=== PATIENT | male | born 1975 | race Caucasian/White ===

== ENCOUNTER 2018-02-05 06:48 | Day surgery (SDC) | payer OTHER, SELFPAY ==
[2018-01-27 10:08] VITALS: BMI 32.3
[2018-02-05] VITALS (15 sets, daily range): BP systolic 117–142; BP diastolic 64–95; PULSE 56–90; RESP 10–20; TEMP 36.1–36.3; O2SAT 12–100; BMI 33.0
[2018-02-05] MEDS: LACTATED RINGERS 1,000 ML 42 ML IV ×2 (07:38→11:33)
[2018-02-05] MEDS: fentaNYL 100 MCG/2 ML INJ 50 MCG IV (07:47)
[2018-02-05] MEDS: MIDAZOLAM 2 MG/2 ML VIAL IV (07:55)
--- NOTE | 2018-02-05 07:57 | PM.PREOP ---
Pre-operative Note Interval Note Pre-op Check: Yes History & Physical Reviewed by Physician and Yes Exam Performed Changes: No
[2018-02-05] MEDS: CEFAZOLIN 2 GM/100 ML FROZ.PIGGY IV (08:55)
--- NOTE | 2018-02-05 09:48 | SUR.OPER ---
Lateral on padded OR bed with dowd bag positioner, head on pillow, gel axillary roll in place, bottom leg bent with gel pad under knee to foot, upper leg straight and supported with pillows. Operative arm secured in shoulder positioning suspension device. non-operative arm secured on padded arm board. Safety belt at hip, tape over blanket securing lower legs.
[2018-02-05] MEDS: BUPIVACAINE 0.25% (PF) VIAL 30 ML INJ (09:58)
[2018-02-05] MEDS: SODIUM CHLORIDE IRRIG SOLUTION 3,000 ML, EPINEPHrine 1 MG IRR (09:58)
[2018-02-05] MEDS: CEFAZOLIN 1 GM VIAL IV (13:45)
[2018-02-05 15:52] LABS: Alanine Aminotransferase 39 IU/L (21-72)
--- NOTE | 2018-02-05 16:03 | P.OP_ITS ---
Operative Date/Time/Diagnoses Date of procedure: 02/05/18 Time of procedure: 09:00 Pre-op diagnosis: Left shoulder labral tear, left shoulder rotator cuff tendinopathy, left shoulder long head biceps tendinopathy in the setting of superior labrum tear, left shoulder acromioclavicular osteoarthritis, and left carpal tunnel syndrome. Post-op diagnosis: same Procedure & Clinicians Procedure: 1. Left shoulder arthroscopy with subscapularis rotator cuff repair. 2. Left shoulder arthroscopy with anterior labral repair (capsulorrhaphy). 3. Left shoulder arthroscopy with superior labrum anterior to posterior (SLAP) debridement. 4. Left shoulder open subpectoral biceps tenodesis. 5. Left shoulder open distal clavicle excision. 6. Left open carpal tunnel release. Same procedure as scheduled: Yes Indications: This is a 42-year-old [id number] male whose had left shoulder pain for greater than 5 years as well as left hand numbness and tingling in the thumb and index finger. A preoperative EMG/nerve conduction study test showed slowing of the median nerve conduction across the carpal tunnel consistent with carpal tunnel syndrome. A MRI of his left shoulder was obtained that showed a anterior labral tear that extended inferiorly with an underlying large cyst in the glenoid, cartilage loss on the glenoid as well as the humeral head, superior labrum anterior to posterior tear with tendinopathy of the long head biceps tendon in the groove, rotator cuff tendinopathy, and acromioclavicular osteoarthritis. The patient continued to have left shoulder pain despite activity modification, physical therapy, corticosteroid injections , nonsteroidal anti-inflammatories. The risks, benefits, indications, and expectations of treatment options were discussed with the patient. The risks of surgery to include but not limited to infection, bleeding, damage to neurovascular structures, need for additional surgery, persistent or worsening pain, recurrent labral tears, failure of biceps tenodesis, recurrent rotator cuff tears, iatrogenic chondromalacia, iatrogenic fracture, deep vein thrombosis , pulmonary embolism, loss of limb and loss of life were discussed with the patient. All questions were answered, the patient elected to proceed with surgery and informed consent was obtained. Surgeon: Tayler Levy Yes if Unassisted: Yes Anesthesia Type: General (Endotracheal tube), Peripheral nerve block (Left interscalene nerve block) and Local (15 mL of 0.25 upivacaine without epinephrine) Operative Notes Findings: 1. Anterior edge of subscapularis tear without significant retraction of the tendon. 2. Superior labrum anterior posterior tear. 3. Anterior labral tear from the superior labrum to the 7:00 position. 4. 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 5. Grade 3 chondromalacia of the humeral head. 6. Osteoarthritis of the acromioclavicular joint. 7. Tenosynovitis of the long head of the biceps. 8. Thickening of the transverse carpal ligament. Closure Type: primary Implants & Drains: 1. Arthrex SutureTak x1. 2. Arthrex PushLock x2. 3. Arthrex bio tenodesis screw 6.25 mm. Estimated Blood Loss (mL): 50 Blood products transfused: none Tourniquet time (min): 17 Procedure in detail: The patient was met in the preoperative hold area on the morning of surgery were reconfirmed that we had the correct patient, were planned due the correct procedure and had the correct extremity which was the left upper extremity identified. Prior to the patient receiving any medications the operative extremity was initialed by the surgeon. The patient then underwent sedation had a left interscalene nerve block performed by anesthesia. The patient was then brought back to the operating room in stable condition and placed supine on the operating room table. All bony prominences well padded and sequential compression devices were placed on the bilateral lower extremities. General anesthesia was induced without complication and endotracheal tube was placed. The patient was then positioned into a lateral decubitus position utilizing a beanbag. We again ensured that all bony prominences well padded. The left upper extremity was then prepped and draped in the usual sterile fashion. After final draping an additional ChloraPrep was utilized. 3 min were allowed to lapse to enable ChloraPrep to dry. We have surgical time-out we confirmed that we had the correct patient, we will plan to do the correct procedure and had the correct extremity which was the left upper extremity identified. We also confirmed the patient received preoperative antibiotics, that all necessary gear was then removed from sterile, the necessary implants were present and that no members of the operative team had any concerns. We then utilizing the Arthrex sleeve in [place] placed the left upper extremity in the traction. I then began by making a standard posterior portal by 1st incising the skin with a#11 blade and then inserting the trocar with the blunt introducer into the shoulder. Initially this was into the subacromial space which showed only minimal bursitis. I then repositioned the trocar into the glenohumeral joint and continued my examination. Immediately on entering a superior labrum anterior to posterior tear was visualized. Additionally grade 3 chondromalacia of the humeral head and grade 4 chondromalacia of the glenoid in the anterior aspect was appreciated. I then established a anterior portal in the rotator interval by 1st localizing with an 18 gauge needle then incising the skin with a#11 blade and then placing a switching stick through the incision into the shoulder joint. I then dilated over this and placed a 5.5 mm cannula. I then introduced my probe and continued my examination. Probing of the superior labrum anterior to posterior region again proved that this was torn. Additionally the anterior labrum was torn down to approximately the 7 o' clock position. The remainder of the labrum was intact. There is significant chondromalacia of the glenoid in the anterior inferior aspect which was full- thickness as well as grade 2 and 3 chondromalacia on the more posterior inferior aspect, which was debrided of any loose flaps utilizing the sucker shaver. The supraspinatus was intact and there was some induration of the infraspinatus however it was intact. I then inserted a biter and detached the long head of the biceps at the anchor. I then inserted a sucker shaver and debrided the anterior labrum, the biceps stump and the biceps sling. I then evaluated the subscapularis which was notable for tearing of the anterior edge and some mild laxity in the tension of the tendon. Therefore decision was made to do a repair of the anterior edge of the subscapularis tendon. I debrided any unhealthy appearing tissue. I then created a appropriate place on the humeral head for reattachment by utilizing the bur mode on the sucker shaver to get bleeding bone. I then established a 2nd anterior portal after localizing with an 18 gauge needle that was more inferior and medial to the initial 1 to give the appropriate angle for placing the anchor into the humeral head. After establishing the portal with a switching stick and then dilated over this and placed a cannula. I then loaded suture tape on a scorpion and a horizontal mattress suture in the subscapularis. I then loaded the suture tape on to a PushLock anchor. I then used the punch to create a hole in the appropriate place in the humeral head where I had debrided down to bleeding bone. I then appropriately tensioned the suture tape and placed the PushLock into the pre punched hole. I then cut the suture tape with no tails. I then probed this repaired confirm that the subscapularis was appropriately taut now. I then turned my attention to the anterior labral tear. It should be noted that underneath this tear was a large cyst in the glenoid. I withdrew the 2nd anterior portal that had placed and made a 3rd anterior portal that was just inferior to the 1st 1 and placed a cannula into this portal. I elevated the labrum utilizing an elevator and then prepared the bone utilizing a pineapple rasp as well as the sucker shaver in bur mode. Because of the large cyst I placed my initial anchor in the inferior aspect and further inferior with shallow angle to enable capturing good bone. This 1st anchor was a preloaded SutureTak. I then attempted to utilize a suture Lasso to pass 1 of the sutures through the labrum, however was unable because of the angle with the humeral head to get a good bite of the labrum therefore decision was made to load the suture into a scorpion and passed the suture through the labrum utilizing this. The suture was successfully passed through however on withdrawing the scorpion from the joint the suture became frayed and was not usable. Therefore this anchor was not usable in the suture was cut flush. I then attempted to place a 2nd anchor just superior to this at a sharper angle, however after drilling the anterior aspect of the cyst gave way and this was not usable drill hole therefore was debrided. Because of the cyst and then made the determination to place the anchor further onto the glenoid face and a shallower angle. This anchor utilized a PushLock, which was loaded with FiberWire after the FiberWire was passed through the labrum utilizing the scorpion. After appropriately tensioning the labrum the PushLock was placed down into the predrilled hole. Labrum was brought appropriately up over the on to the edge of the glenoid and was appropriately taut. I then placed a 2nd PushLock more superior to the 1st after passing FiberWire through the labrum utilizing the suture Lasso. I then probed the labral repair, which was appropriately brought to the anterior edge and a little onto the surface of the glenoid given the chondromalacia. I then withdrew all arthroscopic equipment from the glenohumeral joint. At this time the shoulder had significant swelling from the arthroscopic fluid and given that the subacromial space and 1st evaluation did not have significant bursitis decision was made not to do a arthroscopic subacromial decompression. I then turned my attention to the open subpectoral biceps tenodesis. Made an incision in line with the arm approximately 1 cm above the inferior border of the pack and extending 2 cm inferior to this. Sharply incising the skin I utilized electrocautery to dissect through the subcuticular layer and maintain hemostasis. I then identified the fascia overlying the muscle and utilized Metzenbaum scissors to incise this. I then bluntly dissected into the bicipital groove where I localized the long-head biceps tendon in the groove. I withdrew this from the wound. The tendon was notable for significant tenosynovitis. I debrided the tenosynovitis and then marked 2 cm proximal to the muscular tendinous junction. I then utilized a 2. Fiber loop suture to whipstitch from the musculotendinous junction to the marked. I then truncated the remainder of the tendon. I then measured the tendon to be just under 6 mm in diameter. Therefore decision was made to drill a 6 mm drill, tapped with a 6.25 mm tap and placed a 6.25 mm tenodesis screw. I then localized the appropriate spot in the groove just under the inferior margin of the pectoralis to place the biceps tenodesis screw and placed a guide pin. I then attempted to drill over this guide pin however realized was directed too far lateral and was on the lateral cortex therefore repositioned the guide pin and then again drilled unit cortically with a 6 mm drill. I then tapped the drill hole with a 6.25 mm tap. I then loaded 1 strand of the FiberWire from the whipstitch through a 6.25 mm bio tenodesis screw and placed a screw flush to the end of the tendon. I then placed the tendon in the screw into the pre drilled hole. I then tugged on the 2 ends of the suture to confirm that the screw was appropriately seated. I then tied the 2 ends of the FiberWire over the tenodesis screw. Then thoroughly irrigated the wound. I then turned my attention to the open distal clavicle excision. Major saber incision over the acromioclavicular joint. After sharply incising the skin I utilized electrocautery to dissect through the subcuticular layer. I then identified the fascia overlying the clavicle and incised this in line with the clavicle. I then elevated the fascia from the clavicle anteriorly and posteriorly. I then placed Neri retractors anteriorly and posteriorly around the acromioclavicular joint. I removed the intra-articular disc from the acromioclavicular joint utilizing a rongeur. I then measured 1 cm proximal to the end of the clavicle and marked this. I then utilized a sagittal saw to remove the distal cm of the clavicle. I then utilized a rasp to smooth the edges of the clavicle. I inserted my finger and confirmed that there were no sharp edges that there had been adequate resection. I then thoroughly irrigated the wound. I then turned my attention to closing all the shoulder incisions. The fascia from the distal clavicle excision was closed utilizing 0 Vicryl in figure-of- eight fashion. The subcuticular layer of each of the incisions was closed utilizing 2-0 Vicryl in a buried interrupted fashion. I then closed the skin of the distal clavicle excision and the biceps tenodesis incision utilizing 3 -0 Monocryl in a buried running fashion. I then closed each of the portal incisions skin utilizing 3-0 Monocryl in buried fashion. I then injected 10 mL of 0.25% bupivacaine without epinephrine about the biceps tenodesis incision. I then placed Mastisol and Steri-Strips across each of the incisions. Incisions were then dressed with sterile Xeroform, plain gauze and ABD. Medipore tape was then placed over this. We then repositioned the patient supine on an operating room table ensuring that all bony prominences were again well padded. The left upper extremity from the elbow down was then re-prepped and draped. After final draping an additional ChloraPrep was utilized. 3 min were allowed to lapse to enable ChloraPrep to dry. I then exsanguinated the left upper extremity and inflated a forearm tourniquet to 200 mm Hg. I then made a incision on the volar aspect of the wrist over the carpal tunnel. After sharply incising the skin I utilized bipolar cautery to dissect through the subcuticular layer. I then sharply incised palmar fascia in line with my incision utilizing a new knife blade. I then identified the transverse carpal ligament and made a small kyle in this with the knife blade. I then inserted a [place] through this neck such that it was protecting the median nerve and incised sharply down onto the [place] to transect the remainder of the transverse carpal ligament within the wound. I then inserted a tenotomies all utilizing the [place] to again keep the median nerve safe and released the transverse carpal ligament as far proximal as could be visualized. I then inserted a [place] both proximally and distally and confirmed that the entire transverse ligament had been transected in that there was ample room within the carpal tunnel. I then thoroughly irrigated the wound. The skin was closed utilizing 4-0 nylon in a horizontal mattress fashion. Wound was then dressed with sterile Xeroform, plain gauze and Smita. The tourniquet was deflated after 17 min. A Vishal bandage was then placed over this. All sponge counts and needle counts were correct at the conclusion of the case. The patient was woken from general anesthesia without complication and taken to the PACU in stable condition. Complications: none Condition: stable Disposition: PACU Plan for aftercare: The patient will be discharged home same day of surgery. May remove his dressings in 5 days and shower at that time and let his wounds get wet but no soaking his wounds for 4 weeks. 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 I will see the patient back for wound check in 10-14 days at which time we will initiate physical therapy for the anterior labral and subscapularis repair protocols.
[2018-02-05] MEDS: OXYCODONE IR 5 MG TABLET PO ×2 (16:22→16:53)
[2018-02-05] MEDS: METOCLOPRAMIDE 10 MG/2 ML INJ IV (16:28)
--- NOTE | 2018-02-05 16:40 | SUR.PHASEII ---
Prolonged stay in [facility] due to length of surgery and some ongoing nausea. Did receive Reglan in [facility].
[2018-02-05] MEDS: ONDANSETRON 4 MG/2 ML INJ IV (16:45)
[2018-02-05 19:40] LABS: Hepatitis B Surface Antigen NEGATIVE s/c (NEGATIVE)
[2018-02-05 19:55] LABS: HIV 1 and 2 Antibody NEGATIVE (NEGATIVE); Hep C Virus Ab w/Reflex Quant NEGATIVE s/c (NEGATIVE)
[2018-02-07 15:37] LABS: Hepatitis B Surf Ab Qualitativ Nonreactive (Nonreactive)
== END 2018-02-05 16:58 | disposition home or self-care (01) ==
PROVIDERS: PCP Family Medicine; Visit Provider Orthopaedic Surgery
PROC: (CPT 29805; principal; 2018-02-05 07:45)
PROC: (CPT 64721; 2018-02-05 07:45)
PROC: (CPT 23120; 2018-02-05 07:45)
DX: S43.492A Other sprain of left shoulder joint, initial encounter (principal); M75.22 Bicipital tendinitis, left shoulder; M19.012 Primary osteoarthritis, left shoulder; G56.02 Carpal tunnel syndrome, left upper limb; M94.212 Chondromalacia, left shoulder
CPT/HCPCS: 23430; 29806; 29827; 23120; 64721; 64415; 64450; J0171; J0330; J0690; J1100; J2250; J2405; J2704; J2765; J3010

== ENCOUNTER → 2018-04-29 08:56 | Outpatient (CLI) | payer OTHER, SELFPAY ==
--- NOTE | 2018-04-29 | DI.MRI.S_ITS ---
PROCEDURE: MR LUMBAR SPINE WO CON INDICATIONS: LOW BACK PAIN. 43-year-old male with worsening low back pain and radiculopathy. TECHNIQUE: Noncontrast sagittal T1 spin echo and T2 fast echo, sagittal STIR, axial T1 and T2 fast spin echo through the lumbar spine. In cases with scoliosis, additional coronal T2 fast spin echo may be performed. COMPARISON: None. FINDINGS: Image quality: Excellent. Alignment and Curvature: There is normal bony alignment. Bone Marrow: Marrow is of normal overall signal. No acute vertebral body compression fractures. Spinal Cord: Conus medullaris terminates at the L1 level. Visualized cord demonstrates normal signal and size. Paraspinous Soft Tissues: No paravertebral masses. T12-L1: Normal appearance. L1-L2: Normal appearance. L2-L3: Normal appearance. L3-L4: Mild loss of disc height is seen. Loss of disc signal is seen. Mild generalized disc bulge is seen. No significant neural foraminal or central canal narrowing are seen. L4-L5: The disc height and disk signal are well-preserved. Mild generalized disc bulge is seen. Mild to moderate facet hypertrophy is seen. There is mild to moderate bilateral neural foraminal narrowing seen, left worse than right. No significant central canal narrowing is seen. L5-S1: Normal appearance. IMPRESSION: Mild to moderate neural foraminal narrowing seen at the L4-L5 level. There is mild loss of disc height at L3-L4. Dictated by: Harinder Guy M.D. on 04/29/2018 at 12:05 Approved by: Harinder Guy M.D. on 04/29/2018 at 12:07
== END ==
PROVIDERS: PCP Family Medicine; Visit Provider Family Medicine
DX: M54.5 Low back pain (principal); M48.061 Spinal stenosis, lumbar region without neurogenic claudication
CPT/HCPCS: 72148

== ENCOUNTER → 2019-03-24 11:19 | Outpatient (CLI) | payer OTHER, SELFPAY ==
--- NOTE | 2019-03-24 | DI.MRI.S_ITS ---
PROCEDURE: MR LUMBAR SPINE WO CON INDICATIONS: Spondylosis without myelopathy or radiculopathy TECHNIQUE: Noncontrast sagittal T1 spin echo and T2 fast echo, sagittal STIR, axial T1 and T2 fast spin echo through the lumbar spine. In cases with scoliosis, additional coronal T2 fast spin echo may be performed. COMPARISON: [facility], MR, MR LUMBAR SPINE WO CON, 04/29/2018, 9:57. FINDINGS: Image quality: Excellent. Alignment and Curvature: There is normal bony alignment. Bone Marrow: Marrow is of normal overall signal. Scattered foci are seen, which are hyperintense on T1-weighted and T2-weighted imaging, which are most consistent with benign vertebral body hemangiomas. No acute vertebral body compression fractures. Spinal Cord: Conus medullaris terminates at the L1 level. Visualized cord demonstrates normal signal and size. Paraspinous Soft Tissues: No paravertebral masses. L1-L2: Normal appearance. L2-L3: Normal appearance. L3-L4: Mild to moderate loss of disc height and disc signal are seen. Moderate generalized disc bulge is seen. Mild facet joint hypertrophy is seen. Minimal bilateral neural foraminal narrowing is seen. No significant central canal narrowing is seen. These degenerative changes are slightly progressed compared to the prior MRI. L4-L5: The disc height and disk signal are well-preserved. Mild generalized disc bulge is seen. [id number] facet hypertrophy is seen. [id number] bilateral neural foraminal narrowing is seen, left worse than right. Minimal to mild central canal narrowing is seen. When comparison is made with the prior examination, these findings are similar. L5-S1: Normal appearance. IMPRESSION: Focal lower lumbar spine degenerative changes are seen, which are minimally progressed at the L3-L4 level compared to 2018. Dictated by: Harinder Guy M.D. on 03/24/2019 at 11:31 Approved by: Harinder Guy M.D. on 03/24/2019 at 11:34
== END ==
PROVIDERS: Visit Provider Physical Medicine & Rehabilitation
DX: M47.816 Spondylosis without myelopathy or radiculopathy, lumbar region (principal)
CPT/HCPCS: 72148